=== PATIENT | male | born 1955 | race Caucasian/White ===

== ENCOUNTER 2017-08-17 17:07 | Observation (INO) | payer BC, OTHER ==
[~2017-08-17] VITALS: Ht 182.9 cm; Wt 113.1 kg
[~2017-08-17 17:07] MED LIST: ALLOPURINOL300 MG PO; AZITHROMYCIN250 MG PO; GLIMEPIRIDE2 MG PO; HUMALOG100 UNIT/3 SQ; LANTUS 3ML100 UNITS/ SQ; LANTUS100 UNITS/ SC; LEVAQUIN500 MG PO; LISINOPRIL10 MG PO; METFORMIN HCL500 MG PO; MULTI-VITAMIN1 EACH; SIMVASTATIN20 MG PO; TRAZODONE HCL100 MG PO; VENLAFAXINE HC150 M1 PO; VITAMIN E400 UNI2
--- NOTE | 2017-08-17 17:45 | Diagnostic Imaging Report ---
EXAMINATION: Chest, CHEST SINGLE (PORTABLE) INDICATION: Chest pain COMPARISON: Chest 2 views 06/13/2015 FINDINGS: LINES: None. Heart: Normal cardiac silhouette. Vascular: The pulmonary vasculature is within normal limits. Mediastinum: No mediastinal, hilar, or axillary mass or lymphadenopathy. Lungs: No parenchymal mass. No focal consolidation. Pleura: No pleural effusion. No pneumothorax. Bones: No acute osseous abnormality. Degenerative changes of the thoracic spine. Soft tissues: Normal. Impression: No acute radiographic abnormality. Signed by: Dr. Te Arzola M.D. on 08/17/2017 5:41 PM
[2017-08-17 17:55] LABS: BASOPHILS # (AUTO) 0.1 (0.0-0.1); BASOPHILS % 0.7 % (0.0-1.0); EOSINOPHILS # (AUTO) 0.2 (0.0-0.4); EOSINOPHILS % 2.7 % (0.0-6.0); HEMATOCRIT 46.3 % (38.2-49.6); HEMOGLOBIN 15.6 g/dL (14.0-18.0); LYMPHOCYTES # (AUTO) 2.1 (1.0-3.2); LYMPHOCYTES % 24.7 % (18.0-39.1); MEAN CORPUSCULAR HEMOGLOBIN 29.1 pg (28-32); MEAN CORPUSCULAR HGB CONC 33.7 g/dL (31-35); MEAN CORPUSCULAR VOLUME 86.2 fL (81-99); MONOCYTES # (AUTO) 0.9 (0.2-0.8); MONOCYTES % 10.5 % (4.4-11.3); NEUTROPHILS # (AUTO) 5.3 (2.1-6.9); NEUTROPHILS % 61.1 % (38.7-80.0); PLATELET COUNT 280 x10e3/uL (140-360); RED BLOOD COUNT 5.37 x10e6/uL (4.3-5.7)
[2017-08-17 18:10] LABS: INR 1.2; PROTHROMBIN TIME 14.3 seconds (11.9-14.5)
[2017-08-17 18:11] LABS: PARTIAL THROMBOPLASTIN TIME 29.8 seconds (23.8-35.5)
[2017-08-17 18:20] LABS: ALANINE AMINOTRANSFERASE 20 IU/L (0-55); ALBUMIN 3.8 g/dL (3.5-5.0); ALBUMIN/GLOBULIN RATIO 0.9 (0.8-2.0); ALKALINE PHOSPHATASE 112 IU/L (40-150); ANION GAP 14.1 mmol/L (8-16); BLOOD UREA NITROGEN 23 mg/dL (7-26); BUN/CREATININE RATIO 22 (6-25); CALCIUM 9.9 mg/dL (8.4-10.2); CARBON DIOXIDE 27 mmol/L (22-29); CHLORIDE 105 mmol/L (98-107); CREATINE KINASE 179 IU/L (30-200); CREATININE, SERUM 1.03 mg/dL (0.72-1.25); EST GLOMERULAR FILTRATION RATE > 60 ML/MIN (60-); GLUCOSE 120 mg/dL (74-118); MAGNESIUM 2.1 MG/DL (1.3-2.1); POTASSIUM 4.1 mmol/L (3.5-5.1); SODIUM 142 mmol/L (136-145)
[2017-08-17 18:40] LABS: THYROID STIMULATING HORMONE 1.672 uIU/mL (0.350-4.940)
--- OUTSIDE RECORDS SUMMARY | 2017-08-17 19:59 | XMS REPORT ---
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 Allergies, Adverse Reactions, Alerts This patient has no known allergies or adverse reactions. Medications This patient has no known medications. Results Test Description Test Time Test Comments Text Results Atomic Results Result Comments CHEST SINGLE (PORTABLE) [place] [id number] Patient Name: BEBETO CHEW MR #: [id number] : 1955 Age/Sex: 62/M Req #: [id number] Adm Physician: Ordered by: HANH CHAMPAGNE [employer] Report #: [id number] Location: ER Room/Bed: Procedure: [id number] DX/CHEST SINGLE (PORTABLE) Exam Date: 08/17/17 Exam Time: 1720 REPORT STATUS: Signed EXAMINATION: Chest, CHEST SINGLE (PORTABLE) INDICATION: Chest pain COMPARISON : Chest 2 views 06/13/2015 FINDINGS: LINES: None. Heart : Normal cardiac silhouette. Vascular: The pulmonary vasculature is within normal limits. Mediastinum: No mediastinal, hilar, or axillary mass or lymphadenopathy. Lungs: No parenchymal mass. No focal consolidation. Pleura: No pleural effusion. No pneumothorax. Bones: No acute osseous abnormality. Degenerative changes of the thoracic spine. Soft tissues: Normal. Impression: No acute radiographic abnormality. Signed by: Dr. Essence Gutierrez M.D. on 08/17/2017 5:41 PM Dictated By: ESSENCE GUTIERREZ MD 40 COPY TO: HANH CHAMPAGNE NP
[2017-08-17] MEDS ORDERED: ASPIRIN 81 MG CHEW TAB PO ONE (20:00)
[2017-08-17] MEDS ORDERED: ONDANSETRON HCL INJ 2 MG/ML VIAL IV PRN (20:00)
[2017-08-17] MEDS ORDERED: SODIUM CHLORIDE FLUSH 10 ML SYR INJ PRN (20:00)
[2017-08-17 20:50] VITALS: BP 142/92
[2017-08-17] MEDS ORDERED: SIMVASTATIN 20 MG TAB PO SCH (21:00)
[2017-08-17 21:30] VITALS: BP 142/92
[2017-08-18 00:30] VITALS: BP 143/75
[2017-08-18 04:00] VITALS: BP 112/3
[2017-08-18 07:24] LABS: BASOPHILS # (AUTO) 0.1 (0.0-0.1); BASOPHILS % 0.8 % (0.0-1.0); EOSINOPHILS # (AUTO) 0.4 (0.0-0.4); EOSINOPHILS % 5.3 % (0.0-6.0); HEMATOCRIT 44.2 % (38.2-49.6); HEMOGLOBIN 14.6 g/dL (14.0-18.0); LYMPHOCYTES # (AUTO) 2.2 (1.0-3.2); MEAN CORPUSCULAR HEMOGLOBIN 29.3 pg (28-32); MEAN CORPUSCULAR VOLUME 88.6 fL (81-99); MONOCYTES # (AUTO) 0.9 (0.2-0.8); NEUTROPHILS # (AUTO) 4.2 (2.1-6.9); NEUTROPHILS % 53.8 % (38.7-80.0); PLATELET COUNT 254 x10e3/uL (140-360); RED BLOOD COUNT 4.99 x10e6/uL (4.3-5.7); RED CELL DISTRIBUTION WIDTH 14.4 % (11.7-14.4)
[2017-08-18 07:30] VITALS: BP 140/76
[2017-08-18 07:55] LABS: ALANINE AMINOTRANSFERASE 14 IU/L (0-55); ALBUMIN 3.2 g/dL (3.5-5.0); ALBUMIN/GLOBULIN RATIO 0.9 (0.8-2.0); ALKALINE PHOSPHATASE 112 IU/L (40-150); ANION GAP 12.3 mmol/L (8-16); BLOOD UREA NITROGEN 25 mg/dL (7-26); BUN/CREATININE RATIO 26 (6-25); CARBON DIOXIDE 28 mmol/L (22-29); CHLORIDE 106 mmol/L (98-107); CREATINE KINASE 111 IU/L (30-200); CREATININE, SERUM 0.95 mg/dL (0.72-1.25); EST GLOMERULAR FILTRATION RATE > 60 ML/MIN (60-); GLUCOSE 124 mg/dL (74-118); POTASSIUM 4.3 mmol/L (3.5-5.1); SODIUM 142 mmol/L (136-145)
[2017-08-18] MEDS ORDERED: LISINOPRIL 10 MG TAB PO SCH (09:00)
[2017-08-18] MEDS ORDERED: ONDANSETRON HCL 4 MG ORAL DISINTEGRATING TAB PO PRN (10:45)
--- NOTE | 2017-08-18 11:12 | Consultation ---
DATE OF CONSULTATION: August 18, 2017 CARDIOLOGY CONSULTATION REASON FOR CONSULTATION: Palpitations. HISTORY OF PRESENT ILLNESS: This is a 62-year-old man with history of diabetes mellitus, hypertension, and hyperlipidemia, who presented with complaints of palpitations. He reports that yesterday midmorning he began to feel the sensation of his heart skipping beats. The sensation persisted so he presented to the ER for further evaluation. He denied any chest pain, shortness of breath, lightheadedness, syncope, edema, orthopnea, or PND. Of note, he indicates he drinks a lot of tea and 3 Monsters a day. REVIEW OF SYSTEMS: Negative except as per HPI. PAST MEDICAL HISTORY: Hypertension, diabetes mellitus, hyperlipidemia. PAST SURGICAL HISTORY: Gastric bypass, lithotripsy, back surgery, tonsillectomy. ALLERGIES: PLEASE SEE EMR. MEDICATIONS: Please see medication list. SOCIAL HISTORY: Denies any tobacco, alcohol or illicit drugs. FAMILY HISTORY: Pertinent for mother who of a myocardial infarction at the age of 37, and a father who had coronary artery bypass surgery at the age of 75. PHYSICAL EXAMINATION VITALS: Temperature 98.4 degrees, pulse 69, respiratory rate 28, blood pressure 140/76, oxygen saturation 95% on room air. GENERAL: A well-developed, well-nourished man in no acute distress. HEENT: Normocephalic and atraumatic. Pupils equal. No scleral icterus. NECK: Supple. No thyromegaly or cervical lymphadenopathy. No carotid bruits. LUNGS: Clear to auscultation bilaterally. No wheezes or crackles. CARDIOVASCULAR: Normal rate. Regular rhythm. No murmur. Normal S1 and S2. ABDOMEN: Soft and nontender. EXTREMITIES: No edema. NEURO: Nonfocal exam. LABS: WBC 7.86, hemoglobin 14.6, hematocrit 44.2, and platelets 254,000. Sodium 142, potassium 4.3, chloride 106, CO2 28, BUN 25, creatinine 0.95. Troponin less than 0.001. TSH 1.657. INR 1.2. Chest x-ray with no acute radiographic abnormality. EKG demonstrated sinus rhythm with PVCs, left axis deviation and right bundle branch block. IMPRESSION 1. Palpitations. 2. Premature ventricular contractions. 3. Diabetes mellitus. 4. Hypertension. 5. Hyperlipidemia. RECOMMENDATIONS: No evidence of myocardial infarction on serial cardiac biomarkers. Will obtain echocardiogram, as well as treadmill nuclear stress test for further evaluation of the patient's abnormal EKG. The patient was advised to significantly reduce his caffeine intake. Further recommendations pending stress test results. If both are unremarkable, he will need addition of beta blockade and outpatient Holter monitor. Thank you for this consult. We will continue to follow. Job#: [id number] MELISSA
[2017-08-18 11:33] VITALS: BP 129/77
[2017-08-18 12:31] VITALS: BP 129/77
[2017-08-18 16:34] VITALS: BP 129/82
[2017-08-18 17:41] LABS: CREATINE KINASE 87 IU/L (30-200)
[2017-08-18] MEDS ORDERED: TRAZODONE HCL 50 MG TAB PO SCH (21:00)
[2017-08-18] MEDS ORDERED: METOPROLOL TART25 MG PO ×2 (21:13→21:14)
[2017-08-19] MEDS ORDERED: ALLOPURINOL 300 MG TAB PO SCH (09:00)
[2017-08-19] MEDS ORDERED: VENLAFAXINE HCL 75 MG CAPCR PO SCH (09:00)
== END 2017-08-18 21:31 | disposition home or self-care (01) ==
LOC: ER 17:07 → ERHOLD 19:56 → IMCU 20:29
DX: I49.3 Ventricular premature depolarization (principal); R00.2 Palpitations; I10 Essential (primary) hypertension; E11.65 Type 2 diabetes mellitus with hyperglycemia; E78.5 Hyperlipidemia, unspecified; E78.00 Pure hypercholesterolemia, unspecified; Z82.49 Family history of ischemic heart disease and other diseases of the circulatory system
CPT/HCPCS: 36415 ×2; 71045; 78452; 80053 ×2; 82550 ×2; 82553 ×2; 83735; 84443; 84484 ×2; 85025 ×2; 85610; 85730; 93005; 93306; 99284; A9502; G0378 ×2

== ENCOUNTER → 2017-08-29 | Outpatient (CLI) | payer OTHER ==
[~2017-08-29] MED LIST changes: +METOPROLOL TART25 MG PO
== END ==
LOC: NM 10:11
PROVIDERS: ATTEND Internal Medicine
DX: R94.31 Abnormal electrocardiogram [ECG] [EKG] (principal)
CPT/HCPCS: 78452; 93017; A9502